=== PATIENT | female | born 1950 | race Hispanic/Latino ===

== ENCOUNTER 2017-03-19 07:58 | Day surgery (SDC) | payer OTHER ==
[2017-03-19] MEDS ORDERED: Iodixanol 320 MG/ML 200 ML BOTTLE IV ONE ×2 (09:22→15:36)
[2017-03-19] MEDS ORDERED: Lidocaine 2% Inj (20ml) ONE ×2 (09:22→15:53)
[2017-03-19] MEDS ORDERED: Heparin 0 ML IV ONE (09:22)
[2017-03-19] MEDS ORDERED: NIFEdipine 30 mg ER Tab PO SCH (14:00)
[2017-03-19] MEDS ORDERED: Midazolam 2 MG/2 ML VIAL ONE ×2 (15:32→16:22)
[2017-03-19] MEDS ORDERED: Iohexol 350mgl/ml 50 ML ONE (15:32)
[2017-03-19] MEDS ORDERED: Iodixanol 320 MG/ML 100 ML BOTTLE IV ONE (15:35)
[2017-03-19] MEDS ORDERED: Phenylephrine 10 mg/ml Inj ONE (15:36)
[2017-03-19] MEDS ORDERED: Nitroglycerin 50mg in D5W 0 MG/0 ML BOTTLE IV ONE (15:36)
--- NOTE | 2017-03-19 17:05 | CP.PCM.PN ---
Subjective - Date & Time of Evaluation Date of Evaluation: 03/19/17 Time of Evaluation: 12:10 - Subjective Subjective: CRITICAL CARE PROGRESS NOTE Patient is 66yo female with PMhx of ESRD on HD, HTN, presented to [facility] with SOB, found to have EKG changes and mild troponin elevation, transferred to [facility] for cardiac cath. Currently the patient denies any major complaints, awaiting cardiac cath. Transferred to CCU as a hold, awaiting cardiac cath. Objective - Vital Signs/Intake and Output Vital Signs (last 24 hours): Temp Pulse Resp BP Pulse Ox 67 190/78 H 03/19/17 16:31 03/19/17 16:31 - Medications Medications: Current Medications Nifedipine (Procardia Xl) 30 mg PO DAILY IRENA Last Admin: 03/19/17 14:35 Dose: 30 mg - Constitutional Appears: Well, Non-toxic - Head Exam Head Exam: ATRAUMATIC, NORMAL INSPECTION - Eye Exam Eye Exam: EOMI, Normal appearance - Neck Exam Neck Exam: Full ROM - Respiratory Exam Respiratory Exam: Clear to Ausculation Bilateral, NORMAL BREATHING PATTERN - Cardiovascular Exam Cardiovascular Exam: REGULAR RHYTHM, RRR, +S1, +S2 - GI/Abdominal Exam GI & Abdominal Exam: Soft, Normal Bowel Sounds - Extremities Exam Extremities Exam: Full ROM, Normal Inspection - Neurological Exam Neurological Exam: Alert, Awake, Oriented x3 Neuro motor strength exam: Left Upper Extremity: 5, Right Upper Extremity: 5, Left Lower Extremity: 5, Right Lower Extremity: 5 Assessment and Plan - Assessment and Plan (Free Text) Assessment: 66yo female with EKG changes, elevated troponin awaiting cardiac cath - currently afebrile, BP elevated SBP ranging 170-180 - no major complaints ESRD on HD Elevated Troponin (at [facility]) HTN Recommend: - resume home doses of BP meds - Clonidine 0.3mg TID - NIfedepine 30mg XL PO - Norvasc 10mg daily - follow up cardiology - awaiting cardiac cath
[2017-03-19 17:52] VITALS: BP 169/67; PULSE 78; RESP 14; TEMP 97.4
[2017-03-19 19:06] VITALS: O2SAT 98
--- NOTE | 2017-03-25 22:18 | CARDCATH ---
PROCEDURE DATE: 03/19/2017 INDICATIONS: Ms. Mateo Esteves is a 66-year-old female with past medical history significant for hypertension, dyslipidemia and she has renal disease, on hemodialysis, who presented to [facility] with an episode of acute onset of shortness of breath and bilateral pulmonary edema. The patient subsequently had a elevation in her cardiac enzymes, was found to have elevated troponin and was subsequently taken to [facility] for invasive cardiac catheterization evaluation of her non-ST elevation myocardial infarction. PROCEDURES PERFORMED: Left heart catheterization with selective left and right coronary angiogram, 6-Kiswahili right femoral arterial access, Mynx closure device for hemostasis. TECHNIQUES OF PROCEDURE: After obtaining informed consent, the patient was brought to the cardiac cath suite in post-absorptive non-sedated state. The patient was prepped and draped in the usual sterile fashion. A 2% lidocaine was used for infiltration of anesthesia. Using modified Seldinger technique, a 6-Kiswahili sheath was introduced into the right femoral artery. Subsequently over a J-wire, JL4 and JR4 diagnostic catheter was used to engage the left and right coronary systems and angiograms were obtained in different orthogonal views. After obtaining the coronary angiography over J-wire, the JR4 diagnostic catheterization was exchanged to angled pigtail catheter, which was advanced into the LV and LV gram was obtained in the VI view. HEMODYNAMICS: The left ventricle end-diastolic pressure was 16 mmHg, ejection fracture on left ventriculography was noted to be 60-65% with no wall motion abnormalities. CORONARY ANATOMY: Left main large size vessel bifurcates into left anterior descending and left circumflex coronary artery. Left circumflex coronary artery large size vessels, which bifurcates in the AV groove and gives off a large obtuse marginal branch, which further bifurcates into a superior and inferior branches. At the bifurcation of the circumflex there is a moderately calcified 50% stenosis. Left anterior descending is large size vessel, gives off two large diagonal branches and one small diagonal branch, stent in the left anterior descending artery is patent with [id number] in-stent restenosis. The second diagonal branch large size vessel has ostial 80% in-stent restenosis. Right coronary artery moderate proximal 45% stenosis, right dominant circulation. IMPRESSION: High-grade diagonal in-stent restenosis, patent LAD stent with mild in-stent restenosis, RCA proximal [id number] disease. RECOMMENDATIONS: Continue the patient on dual antiplatelet therapy. Guideline directed medical therapy for CAD. If the patient has recurrent anginal symptoms on maximal medical therapy, should consider further angioplasty of the diagonal in-stent restenosis. Thank you Dr. Negron for letting me participate in the care of your patient. Matthew Felipe MD cc: José Miguel Negron MD MTDD
== END 2017-03-19 21:00 | disposition short-term general hospital (02) ==
LOC: CATH 07:58 → 2RSO 10:11 → CCU 11:33 → CATH 21:00
PROVIDERS: ATTEND Internal Medicine Interventional Cardiology
DX: I12.0 Hypertensive chronic kidney disease with stage 5 chronic kidney disease or end stage renal disease (principal); N18.6 End stage renal disease; Z99.2 Dependence on renal dialysis
CPT/HCPCS: 87081; 93458; 99152; 99153; C1769; C2629; J0360; J1644 ×2; J1940; J2250; J3010; J7040; Q9967